=== PATIENT | female | born 1995 ===

== ENCOUNTER → 2018-10-23 21:55 | Observation (INO) ==
[2018-10-23 20:19] LABS: Basophils % 0.1 %; Eosinophils # 0.2 K/mcL (0.0-0.6); Eosinophils % 1.7 %; Hematocrit 30.8 % (35.3-44.9); Hemoglobin 10.5 g/dL (11.5-15.4); Immature Granulocytes % 0.9 % (0-4); Lymphocytes # 2.5 K/mcL (0.6-4.6); Lymphocytes % 18.3 %; Mean Corpuscular HGB Conc 34.1 g/dL (31.6-35.5); Mean Corpuscular Hemoglobin 31.9 pg (28.0-33.3); Mean Corpuscular Volume 93.6 fL (83.0-100.0); Mean Platelet Volume 11.2 fL (9.4-12.4); Monocytes # 1.2 K/mcL (0.0-1.3); Monocytes % 8.8 %; Neutrophils # 9.5 K/mcL (1.6-8.9); Platelet Count 220 K/mcL (140-400); Red Blood Count 3.29 M/mcL (3.82-4.97); Segmented Neutrophils % 70.2 %; White Blood Count 13.6 K/mcL (4.3-11.1)
[2018-10-23 20:36] LABS: Alanine Aminotransferase 11 Units/L (7-52); Aspartate Amino Transferase 17 Units/L (13-39); BUN/Creatinine Ratio 14 (6-26); Blood Urea Nitrogen 8 mg/dL (6-20); Lactate Dehydrogenase 144 Units/L (140-271); Uric Acid 5.5 mg/dL (2.3-7.6); eGFR For African Americans > 60 (> 60); eGFR For Non-African Americans > 60 (> 60)
[2018-10-23 20:37] LABS: Bilirubin,Urine Negative (Negative); Blood,Urine Negative (Negative); Clarity,Urine Cloudy (Clear); Color,Urine Yellow (Yellow); Glucose,Urine (UA) Normal (Normal); Ketones,Urine Negative (Negative); Leukocyte Esterase,Urine Trace (Negative); Nitrite,Urine Negative (Negative); Protein,Urine Negative (Neg-Trace); Specific Gravity,Urine 1.016 (1.010-1.025); Urobilinogen,Urine Normal (Normal)
[2018-10-23 20:42] LABS: Protein/Creatinine Ratio,Urine 0.23 mg/mg (0.00-0.20)
[2018-10-23 20:43] LABS: Amphetamine Screen,Urine Negative ng/mL (Cutoff=1000); Bacteria,Urine Few per hpf (None-Few); Barbiturate Screen,Urine Negative ng/mL (Cutoff=200); Benzodiazepines Screen,Urine Negative ng/mL (Cutoff=200); Cannabinoid Screen,Urine Negative ng/mL (Cutoff = 50); Cocaine Screen,Urine Negative ng/mL (Cutoff= 300); Hyaline Casts,Urine None Seen per lpf (None-Few); Opiate Screen,Urine Negative ng/mL (Cutoff=300); Phencyclidine Screen,Urine Negative ng/mL (Cutoff=25); RBC,Urine 0-3 per hpf (0-3); Squamous Epithelial Cell,Urine Many per lpf (None-Few)
[~2018-10-23 21:55] MED LIST: *HR* FentaNYL (PF) 100 MCG/2 ML VIAL ONE; Bupivacaine-MPF 0.25% 10 ML VIAL ONE; Epidural Premix (fent/bupiv) 110 ML EP ONE
== END | disposition home or self-care (01) ==
LOC: 1NENULAB
PROVIDERS: ADMIT Obstetrics & Gynecology; ATTEND Obstetrics & Gynecology

== ENCOUNTER 2018-10-25 02:48 | Inpatient (IN) ==
[2018-10-25] MEDS ORDERED: Famotidine 20 MG/2 ML VIAL IVP PRN (02:49)
[2018-10-25] MEDS ORDERED: Naloxone 0.4 MG/ML INJ IVP PRN (02:49)
[2018-10-25] MEDS ORDERED: Ondansetron 4 MG/2 ML VIAL IVP PRN (02:49)
[2018-10-25] MEDS ORDERED: *HR* Nalbuphine 10 MG/ML AMPUL IVP PRN (02:49)
[2018-10-25] MEDS ORDERED: Metoclopramide 10 MG/2 ML VIAL IVP PRN (02:49)
[2018-10-25] MEDS ORDERED: Ringers Solution, Lactated 1,000 ML IVC SCH (03:00)
[2018-10-25] MEDS ORDERED: *HR* Labetalol 20 MG/4 ML SYRINGE IVP ONE ×4 (03:16→13:51)
[2018-10-25] MEDS ORDERED: Calcium Gluconate 1,000 MG/10 ML VIAL IV PRN (03:17)
[2018-10-25 03:22] LABS: Basophils # 0.1 K/mcL (0.0-0.2); Basophils % 0.4 %; Eosinophils # 0.3 K/mcL (0.0-0.6); Eosinophils % 2.4 %; Hematocrit 32.7 % (35.3-44.9); Hemoglobin 11.3 g/dL (11.5-15.4); Immature Granulocytes % 1.1 % (0-4); Lymphocytes # 3.4 K/mcL (0.6-4.6); Lymphocytes % 23.7 %; Mean Corpuscular HGB Conc 34.6 g/dL (31.6-35.5); Mean Corpuscular Hemoglobin 32.1 pg (28.0-33.3); Mean Corpuscular Volume 92.9 fL (83.0-100.0); Mean Platelet Volume 11.2 fL (9.4-12.4); Monocytes # 1.2 K/mcL (0.0-1.3); Monocytes % 8.8 %; Platelet Count 239 K/mcL (140-400); Red Blood Count 3.52 M/mcL (3.82-4.97); Segmented Neutrophils % 63.6 %; White Blood Count 14.2 K/mcL (4.3-11.1)
[2018-10-25 03:30] LABS: Alanine Aminotransferase 12 Units/L (7-52); Aspartate Amino Transferase 19 Units/L (13-39); BUN/Creatinine Ratio 14 (6-26); Blood Urea Nitrogen 8 mg/dL (6-20); Lactate Dehydrogenase 159 Units/L (140-271); Uric Acid 5.6 mg/dL (2.3-7.6); eGFR For African Americans > 60 (> 60); eGFR For Non-African Americans > 60 (> 60)
[2018-10-25] MEDS ORDERED: Epidural Premix (fent/bupiv) 110 ML EP SCH (03:45)
[2018-10-25] MEDS: Magnesium Sulf 20 gm/SW 500mL 20 GM/500 ML IV.SOLN IVC SCH ×2 (04:02→15:13)
[2018-10-25] MEDS ORDERED: Calcium Gluconate 1,000 MG/10 ML VIAL ONE (04:05)
[2018-10-25] MEDS ORDERED: Oxytocin 20 units/ LR 1000 mL 20 UNIT/1,000 ML BAG IVC SCH ×2 (05:15→15:38)
[2018-10-25 05:52] LABS: Amphetamine Screen,Urine Negative ng/mL (Cutoff=1000); Barbiturate Screen,Urine Negative ng/mL (Cutoff=200); Benzodiazepines Screen,Urine Negative ng/mL (Cutoff=200); Cannabinoid Screen,Urine Negative ng/mL (Cutoff = 50); Cocaine Screen,Urine Negative ng/mL (Cutoff= 300); Opiate Screen,Urine Negative ng/mL (Cutoff=300); Phencyclidine Screen,Urine Negative ng/mL (Cutoff=25)
[2018-10-25 05:54] LABS: Protein/Creatinine Ratio,Urine 0.26 mg/mg (0.00-0.20)
[2018-10-25] MEDS ORDERED: miSOPROStoL 100 MCG TABLET PO ONE (11:56)
[2018-10-25] MEDS ORDERED: Acetaminophen 325 MG TABLET PO PRN (15:38)
[2018-10-25] MEDS ORDERED: Ibuprofen 600 MG TABLET PO PRN (15:38)
[2018-10-25] MEDS ORDERED: *HR* HYDROcodone/Acet 5/325 mg TABLET PO PRN (15:38)
[2018-10-25 19:05] LABS: Hematocrit 28.9 % (35.3-44.9); Hemoglobin 9.6 g/dL (11.5-15.4); Lymphocytes # 1.8 K/mcL (0.6-4.6); Mean Corpuscular HGB Conc 33.2 g/dL (31.6-35.5); Mean Corpuscular Hemoglobin 31.9 pg (28.0-33.3); Mean Platelet Volume 11.3 fL (9.4-12.4); Platelet Count 235 K/mcL (140-400); Red Blood Count 3.01 M/mcL (3.82-4.97); Red Cell Distribution Width 14.3 % (11.5-14.5)
[2018-10-25 19:10] LABS: White Blood Count 30.7 K/mcL (4.3-11.1)
[2018-10-25 19:49] LABS: Monocytes # 2.2 K/mcL (0.0-1.3); Neutrophils # 26.7 K/mcL (1.6-8.9); Platelet Estimate Normal (Normal)
[2018-10-26] MEDS ORDERED: Magnesium Sulf 20 gm/SW 500mL 20 GM/500 ML IV.SOLN IVC SCH (03:00)
[2018-10-26] MEDS ORDERED: Ringers Solution, Lactated 1,000 ML IVC SCH (03:15)
[2018-10-26 06:07] LABS: Basophils % 0.2 %; Eosinophils # 0.2 K/mcL (0.0-0.6); Eosinophils % 0.9 %; Hematocrit 21.4 % (35.3-44.9); Immature Granulocytes % 0.7 % (0-4); Lymphocytes % 14.3 %; Mean Corpuscular HGB Conc 33.6 g/dL (31.6-35.5); Mean Corpuscular Hemoglobin 31.4 pg (28.0-33.3); Mean Corpuscular Volume 93.4 fL (83.0-100.0); Mean Platelet Volume 10.5 fL (9.4-12.4); Monocytes # 1.4 K/mcL (0.0-1.3); Monocytes % 6.6 %; Neutrophils # 16.2 K/mcL (1.6-8.9); Platelet Count 178 K/mcL (140-400); Red Blood Count 2.29 M/mcL (3.82-4.97); Red Cell Distribution Width 14.4 % (11.5-14.5); Segmented Neutrophils % 77.3 %; White Blood Count 20.9 K/mcL (4.3-11.1)
[2018-10-26 06:08] LABS: Hemoglobin 7.2 g/dL (11.5-15.4)
[2018-10-26] MEDS: Prenatal Vit/FA 1 EACH TABLET PO SCH (07:52)
[2018-10-27] MEDS: Prenatal Vit/FA 1 EACH TABLET PO SCH (08:13)
[2018-10-27 08:29] LABS: Basophils % 0.2 %; Eosinophils # 0.3 K/mcL (0.0-0.6); Eosinophils % 1.7 %; Hematocrit 19.8 % (35.3-44.9); Hemoglobin 6.9 g/dL (11.5-15.4); Immature Granulocytes % 1.4 % (0-4); Lymphocytes # 3.3 K/mcL (0.6-4.6); Lymphocytes % 18.2 %; Mean Corpuscular HGB Conc 34.8 g/dL (31.6-35.5); Mean Corpuscular Hemoglobin 32.4 pg (28.0-33.3); Mean Platelet Volume 10.5 fL (9.4-12.4); Monocytes % 5.6 %; Platelet Count 184 K/mcL (140-400); Red Blood Count 2.13 M/mcL (3.82-4.97); Red Cell Distribution Width 14.7 % (11.5-14.5); Segmented Neutrophils % 72.9 %; White Blood Count 17.9 K/mcL (4.3-11.1)
[2018-10-27 11:29] VITALS: BP 117/70
== END 2018-10-27 13:26 | disposition home or self-care (01) | DRG 806 ==
LOC: 1NENULAB → 1NENUOBS 15:41
PROVIDERS: ADMIT Advanced Practice Midwife; ATTEND Advanced Practice Midwife